=== PATIENT | female | born 1935 | race Caucasian/White ===

== ENCOUNTER 2016-09-08 17:20 | Inpatient (IN) | payer MEDICARE ==
[2016-09-08 18:17] LABS: BASO % 0.3 % (0.2-1.0); HEMATOCRIT 46.3 % (37.0-47.0); HEMOGLOBIN 14.4 gm/l (12.0-16.0); IMM NEUT% 0.3 % (0-1); LYMPH # 0.9 (1.0-4.8); LYMPH % 25.6 % (15-45); MEAN CELL VOLUME 95.9 fl (81.0-99.0); MEAN CORPUSCULAR HEMOGLOBIN 29.8 pg (27.0-31.0); MEAN CORPUSCULAR HGB CONC 31.1 g/dl (33.0-37.0); MEAN PLATELET VOLUME 10.5 fl (7.4-10.4); MONO # 0.6 (0.0-0.8); MONO % 17.5 % (4-12); NEUT % 56.3 % (43-75); PLATELET COUNT 192 K/mm3 (130-400); RED CELL DISTRIBUTION WIDTH 14.9 % (11.5-14.5)
[2016-09-08 18:33] LABS: ALB/GLOB RATIO 1.2 (>1.0); ALBUMIN 3.7 gm/dL (3.5-5.7); CALCIUM 8.7 mg/dL (8.6-10.3)
[2016-09-08 18:37] LABS: TROPONIN I < 0.01 ng/ml (0.0-0.06)
[2016-09-08 18:41] LABS: CKMB ISOENZYME 1.4 ng/ml (0.6-6.3)
[2016-09-08] MEDS ORDERED: Oseltamivir Phosphate 75 MG CAP ONE (19:14)
[2016-09-08] MEDS ORDERED: CEFTRIAXONE 1 GRAM DUPLEX 50 ML IV ONE (19:30)
[2016-09-08 19:53] LABS: URINE BILIRUBIN NEGATIVE (NEGATIVE); URINE BLOOD TRACE (NEGATIVE); URINE GLUCOSE (UA) NEGATIVE (NEGATIVE); URINE LEUKOCYTE ESTERASE NEGATIVE (NEGATIVE); URINE NITRITE NEGATIVE (NEGATIVE); URINE PROTEIN NEGATIVE (NEGATIVE); URINE UROBILINOGEN NORMAL (0-1 mg/dl)
[2016-09-08] MEDS ORDERED: AZITHROMYCIN 500 MG VIAL ONE (19:59)
[2016-09-08] MEDS ORDERED: SODIUM CHLORIDE 0.9% 250 ML IV ONE (20:00)
[2016-09-08 20:02] LABS: URINE APPEARANCE HAZY; URINE COLOR YELLOW
[2016-09-08 20:03] LABS: URINE BACTERIA 2+; URINE EPITHELIAL CELLS 0-2 /hpf; URINE RBC 0-2 /hpf; URINE WBC 0-2 /hpf
[2016-09-08] MEDS ORDERED: MENTHOL/CETYLPYRD 1 EACH LOZENGE PO PRN (20:44)
[2016-09-08] MEDS ORDERED: MAGNESIUM HYDROXIDE 30 ML UDCUP PO PRN (20:44)
[2016-09-08] MEDS ORDERED: BLISTEX LIPSTICK 1 EACH TP PRN (20:44)
[2016-09-08] MEDS ORDERED: BISACODYL 5 MG TABLET.EC PO PRN (20:44)
[2016-09-08] MEDS ORDERED: BISACODYL 10 MG SUP PR PRN (20:44)
[2016-09-08] MEDS ORDERED: AMMONIUM LACTATE 12% TP PRN (20:53)
[2016-09-08] MEDS ORDERED: NITROGLYCERIN 0.4 MG/TAB.SUBL BOT SL PRN (20:53)
[2016-09-08] MEDS ORDERED: SODIUM CHLORIDE 0.9% 1,000 ML IV SCH (21:45)
[2016-09-08] MEDS: SODIUM CHLORIDE 0.9% 1,000 ML IV SCH ×2 (21:52→22:57)
[2016-09-08 21:53] VITALS: BMI 36.8
[2016-09-08] MEDS: DOCUSATE SODIUM 100 MG CAPSULE PO SCH (22:22)
[2016-09-08] MEDS: ATORVASTATIN CALCIUM 10 MG TABLET PO SCH (22:22)
[2016-09-08] MEDS: AMITRIPTYLINE HCL 25 MG TABLET PO SCH (22:22)
[2016-09-08] MEDS: Potassium Chloride ORAL SOLN 20 MEQ/15 ML UDCUP PO SCH (22:23)
[2016-09-08] MEDS: ACETAMINOPHEN 325 MG TABLET PO PRN (22:23)
[2016-09-08] MEDS: OSELTAMIVIR PHOSPHATE 30 MG/5 ML SYRINGE PO SCH (22:57)
[2016-09-08] MEDS: ENOXAPARIN SODIUM 40 MG/0.4 ML SYRINGE SUB-Q SCH (23:51)
[2016-09-08] MEDS: BUMETANIDE 0.25 MG/ML 4ML VIAL IV SCH (23:57)
[2016-09-09] MEDS: HYDROCODONE/ACETAMINOPHEN 5/325MG TABLET PO PRN ×3 (00:28→19:28)
--- NOTE | 2016-09-09 05:38 | RAD ---
History: Dyspnea. Comparison: 02/15/2016. Technique: 2 views Findings: 2 views of the chest were performed demonstrating postsurgical changes with plate and screw fixation of the lower cervical spine. The examination is of low inspiratory volume. The heart size appears to be stable for technique. Bibasilar atelectasis or scarring is present. There is no effusion or pneumothorax is seen. The hilar and mediastinal structures are stable. Impression: 1. A lower respiratory volume with linear bibasilar atelectasis or scarring. 2. Prior plate and screw fixation of the lower cervical spine.
[2016-09-09 06:22] LABS: BASO % 0.2 % (0.2-1.0); EOS % 0.2 % (0.9-2.9); HEMATOCRIT 41.8 % (37.0-47.0); LYMPH # 1.3 (1.0-4.8); LYMPH % 31.7 % (15-45); MEAN CELL VOLUME 97.4 fl (81.0-99.0); MEAN CORPUSCULAR HEMOGLOBIN 30.3 pg (27.0-31.0); MEAN CORPUSCULAR HGB CONC 31.1 g/dl (33.0-37.0); MEAN PLATELET VOLUME 10.5 fl (7.4-10.4); MONO # 0.7 (0.0-0.8); NEUT % 49.9 % (43-75); PLATELET COUNT 150 K/mm3 (130-400); RED CELL DISTRIBUTION WIDTH 15.1 % (11.5-14.5)
--- NOTE | 2016-09-09 06:25 | HP ---
AUNG ROBERT [id number] DATE OF ADMISSION: September 08, 2016 CHIEF COMPLAINT: Dyspnea. HISTORY OF PRESENT ILLNESS: The patient is a 81-year-old female with a history of chronic obstructive pulmonary disease presents regarding dyspnea. She thought maybe she was getting a cold last when she spoke to her daughter, but more recently her facility sent her to the emergency room today because of dyspnea and some chest pain. She denies fevers, denies vomiting, denies diarrhea, but she reports feeling like hell. She notes her legs hurt some. RN has noted some skin irritation in the perineal and coccygeal areas as well. Patient is noted to have a positive influenza test today. PAST MEDICAL HISTORY: Remarkable for: 1. Dementia. 2. She has had previous strokes with right-sided weakness persisting. She had a recurrence in February,, and was admitted here. She is able to stand and take a few steps but does not walk farther than this. 3. She has coronary artery disease and has chronic angina. 4. She has dyslipidemia. 5. Remote history of breast cancer. 6. History of detached retina in the left eye. 7. History of a left radial fracture. PAST SURGICAL HISTORY: Includes: 1. Cervical spine surgery. 2. Back surgery. 3. Right total hip arthroplasty. 4. Bilateral carpal tunnel surgery. 5. Appendectomy. 6. Cholecystectomy. 7. Hysterectomy with oophorectomy. 8. Left lumpectomy. 9. Retinal detachment surgery. 10. Bilateral cataract replacements. ALLERGIES: She reports EGGS make her vomit, and she does not get her flu shots because of this. IMMUNIZATIONS: She has had her pneumonia shot but does not know when this was. MEDICATIONS: Taken from her Medication Administration Record at [facility]: 1. Acetaminophen 650 mg orally every six hours as needed. 2. Albuterol two puffs inhaled every four hours as needed. 3. Alendronate 70 mg orally weekly. 4. Amitriptyline 25 mg at bedtime. 5. AmLactin topically three times daily as needed. 6. Aspirin 325 mg daily. 7. Atorvastatin 10 mg orally at bedtime. 8. Bumetanide 2 mg orally twice daily. 9. Diclofenac topically four times daily as needed. 10. Lasix 40 mg orally daily. 11. Ibuprofen 800 orally every eight hours as needed. 12. Combivent Respimat one puff inhaled four times daily. 13. Imdur 60 mg orally in the morning. 14. Metoprolol tartrate 25 mg orally twice daily. 15. Nitroglycerin 0.4 mg sublingually every five minutes as needed. 16. Nystatin topical powder twice daily as needed. 17. Potassium chloride 20 mEq orally twice daily. 18. Detrol LA 2 mg orally in the morning. 19. Vitamin D3 2000 units orally daily. SOCIAL HISTORY: She lives at [facility]. She is . She quit smoking in 2007. She has three kids. They live in the area. 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 FAMILY HISTORY: Father in his 70s. Mom in her 80s. She has three biologic kids but has a number of other kids that she has grown close to over the years. REVIEW OF SYSTEMS: Eyes are okay. Ears are okay. Nose is okay except for being snotty. Mouth is okay, dry cough is noted, nonproductive and hacky. No heart complaints. No stomach complaints, no vomiting, no diarrhea, occasional constipation. No urinary complaints. She has noted leg swelling over the last year. Skin has had some irritation in the groin. Breasts, no complaints. Did have a history of stroke previously. Mood is okay. Memory is fair. Review of [facility] form indicates that they would accept hospitalization and even CPAP if necessary. They did not with to have intubation. PHYSICAL EXAM: GENERAL: Non-toxic but dyspneic female. VITAL SIGNS: Temperature 98.8, respirations 32 to 24 after respiratory treatments. Blood pressure 106/56, pulse 57, 98% saturation on 2 liters but had been 83% when she first presented. HEAD: Head is normocephalic, atraumatic. EYES: Arcus senilis noted. Pupils are small. EARS: Cerumen noted but otherwise normal. NOSE: Is normal without significant discharge noted at this time. MOUTH: Has dentures, slightly dry tongue noted. NECK: Is supple, no jugular venous distension. LUNGS: Decreased air movement, some wheezes bilaterally throughout anterior and posteriorly, right and left. HEART: Regular rate and rhythm but difficult to hear above the wheezing. ABDOMEN: Soft, nontender, nondistended. Bowel sounds are normal. Right upper quadrant scar is noted. GENITOURINARY: Inguinal creases with erythema consistent with a yeast dermatitis with a fairly notable irritation. EXTREMITIES: Legs with 2 to 3+ edema which is only partially pitting. Feet with flaking and onychomycosis noted but perfusion appears to be good. NEUROLOGIC: Cranial nerves are intact. Speech is clear and fluent. She is oriented times two. LABORATORY: White count 3.6, hemoglobin 14.4, platelets 192, lactate 0.9. Sodium is 137, potassium 3.9, chloride 96, CO2 33, BUN 26, creatinine 1.1, glucose 93, calcium 8.7, GFR is estimated at 48. Liver function tests are normal. Troponin less than 0.01. BNP is 21. CK-MB is 1.4. Influenza A is positive. IMAGING: Chest x-ray, poor inspiration, perihilar changes, previous neck surgery, atherosclerosis is noted on preliminary review. ELECTROCARDIOGRAM: Normal sinus rhythm 81 beats per minute, low voltage noted. ASSESSMENT AND PLAN: 1. Acute influenza A with respiratory failure and hypoxia. Anticipate use of Tamiflu, nebulizers and oxygen replacement. 2. Emergency room physician concerned for infiltrate. Patient was started on Rocephin and azithromycin. Patient does meet sepsis criteria. We will be continuing on the antibiotics and also adding IV fluid bolus but cautiously considering her advanced age with 2 liters at this time and will monitor blood pressure. 3. Chronic obstructive pulmonary disease. Continue nebulizers. Hold off on steroids for right now. 4. Dementia. Not otherwise addressed. 5. History of stroke. Continue on aspirin and blood pressure control. 6. History of coronary artery disease. Continue on aspirin and her regular medications. 7. History of osteoporosis. We will be holding the alendronate at this time. She received it just yesterday. 8. DO NOT RESUSCITATE status. Patient and daughter indicate they would accept CPAP but not intubation. 9. Venous thrombosis prophylaxis. Anticipate use of enoxaparin. 10. Patient is admitted as inpatient here and is estimated to likely be here between 2 and 4 days. cc: Carlitos Bledsoe D.O.
[2016-09-09 06:50] LABS: CALCIUM 7.7 mg/dL (8.6-10.3)
[2016-09-09] MEDS: ALBUTEROL/IPRATROPIUM 2.5/0.5 MG 3 ML/EACH DOSE NEB SCH ×4 (07:41→19:37)
--- NOTE | 2016-09-09 08:50 | PDOC43 ---
- Subjective Chief Complaint: Influenza RN noted very poor activity tolerance, request a Finch due to this plus inguinal skin breakdown, however, so far has been unable to place (even with dilaudid to help relax pt), despite bladder scan 600+. Respiratory wheezing, not monique changed after neb tx. - Objective Vital Signs Temperature 100.0 F 09/09/16 07:09 Pulse Rate 83 09/09/16 07:42 Respiratory Rate 22 09/09/16 07:42 Blood Pressure 138/83 09/09/16 07:09 O2 Saturation by Pulse Oximetry 100 09/09/16 07:42 Oxygen Delivery Method Nasal Cannula Oxygen Flow Rate 3 Vital Signs Last 12 Hours Temp Pulse Resp BP Pulse Ox 09/09/16 07:42 83 22 100 09/09/16 07:09 100.0 F 101 32 138/83 93 09/09/16 03:14 22 09/09/16 03:06 97.8 F 95 24 119/62 91 09/09/16 00:00 97.7 F 64 24 111/57 91 09/08/16 22:44 92 09/08/16 20:50 24 98 09/08/16 20:44 99.3 F 84 24 97/50 84 Intake and Output 09/07/16 09/08/16 09/09/16 23:59 23:59 23:59 Intake Total 3376 Output Total 900 Balance 2476 General: Alert, Cooperative, Mild Distress Lungs: Other (wheezing throughout.) Cardiovascular: Regular Rate and Rhythm Abdomen: Soft, Normal Bowel Sounds, Non-Distended Genitourinary: Other (erythema and erosions noted along inguinal creases bilat. Introitus with erythema, habitus obscures urethral meatus.) Extremities: Edema, No Tenderness Skin: Normal Color Neurological: Normal Speech Psych/Mental Status: Normal Affect Laboratory 09/09/16 05:30 09/09/16 05:30 09/09/16 05:30 MCHC 31.1 L RDW 15.1 H Calcium 7.7 L Current Medications: Current meds reviewed in EMR. Active Medications Acetaminophen (Tylenol) 650 mg PO Q6H PRN PRN Reason: Pain (Mild) Last Admin: 09/08/16 22:23 Dose: 650 mg Acetaminophen/Hydrocodone Bitart ([place] 5/325) 1 tab PO Q4H PRN PRN Reason: Pain Last Admin: 09/09/16 00:28 Dose: 1 tab Albuterol Sulfate (Ventolin Inhalation Solution (Dose)) 2.5 mg NEB Q2H PRN PRN Reason: Wheezing Albuterol/Ipratropium (Duoneb) 3 ml NEB 08,12,16,20 [facility] Last Admin: 09/09/16 07:41 Dose: 3 ml Amitriptyline HCl (Elavil) 25 mg PO BEDTIME [facility] Last Admin: 09/08/16 22:22 Dose: 25 mg Aspirin (Ecotrin) 325 mg PO DAILY [facility] Atorvastatin Calcium (Lipitor) 10 mg PO BEDTIME [facility] Last Admin: 09/08/16 22:22 Dose: 10 mg Benzocaine/Menthol (Cepacol) 1 each PO PRN PRN PRN Reason: Sore Throat Bisacodyl (Dulcolax) 10 mg CO DAILY PRN PRN Reason: Constipation Bisacodyl (Dulcolax) 5 mg PO DAILY PRN PRN Reason: Constipation Bumetanide (Bumex) 2 mg IV X1 [facility] Last Admin: 09/08/16 23:57 Dose: Not Given Cholecalciferol (Vitamin D3) 2,000 units PO 0800 [facility] Clotrimazole (Lotrimin) 1 applic TP BID [facility] Docusate Sodium (Colace) 100 mg PO BID [facility] Last Admin: 09/08/16 22:22 Dose: 100 mg Enoxaparin Sodium (Lovenox) 40 mg SUB-Q Q24H [facility] Last Admin: 09/08/16 23:51 Dose: 40 mg Furosemide (Lasix) 80 mg PO [id number] [facility] Azithromycin 500 mg/ Sodium (Chloride) 250 mls @ 250 mls/hr IV Q24H [facility] Ceftriaxone Sodium/Dextrose (Rocephin 1 Gram Premix) 50 mls @ 200 mls/hr IV Q24H [facility] Sodium Chloride (Sodium Chloride 0.9%) 100 mls @ 25 mls/hr IV PRN PRN PRN Reason: Flush Isosorbide Mononitrate (Imdur) 60 mg PO QAM [facility] Magnesium Hydroxide (Milk Of Magnesia) 30 ml PO DAILY PRN PRN Reason: Constipation Metoprolol Tartrate (Lopressor) 25 mg PO 0800,1600 [facility] Miscellaneous (Non Formulary Drug) 1 each TP QID PRN PRN Reason: Pain (Moderate) Nitroglycerin (Nitrostat) 0.4 mg SL Q5M PRN PRN Reason: Chest Pain Oseltamivir Phosphate (Tamiflu) 30 mg PO BID [facility] Last Admin: 09/08/16 22:57 Dose: 30 mg Petrolatum/Paraffin/Mineral Oil (Blistex) 1 each TP PRN PRN PRN Reason: Dry and/or chapped lips Polyethylene Glycol/Electrolytes (Miralax) 17 g PO DAILY [facility] Potassium Chloride (Potassium Chloride Oral Soln) 20 meq PO BID [facility] Last Admin: 09/08/16 22:23 Dose: 20 meq Sodium Chloride (Normal Saline 10ml Flush) 10 - 50 ml IV PRN PRN PRN Reason: IV Flush Sodium Chloride (Normal Saline 10ml Flush) 10 ml IV Q8HR [facility] Last Admin: 09/09/16 01:08 Dose: Not Given - Problems: Assessment/Plan (1) Influenza A Status: Acute Assessment/Plan: With acute respiratory failure, marked wheezing, on supplemental O2. On Tamiflu started 09/08/16; Pt does not get flu shot due to egg allergy. Meeting criteria for sepsis, given IVF; monitoring for fluid overload. (2) Dementia Qualifiers: Dementia type: Alzheimer's disease Alzheimer's disease onset: unspecified onset Dementia behavioral disturbance: without behavioral disturbance Qualifier Code: (G30.9) Alzheimer's disease, unspecified Status: Chronic Assessment/Plan: In observed room, but is cooperative. (3) CAD (coronary artery disease) Status: Chronic Assessment/Plan: normal troponin, normal BNP on admit. (4) HTN (hypertension) Qualifiers: Hypertension type: essential hypertension Qualifier Code: (I10) Essential (primary) hypertension Status: Chronic Assessment/Plan: Initially low BP on admit, now improved. (5) Ann infection of genital region Status: Acute Assessment/Plan: Making access for Finch difficult. Clotrimazole, zinc oxide ordered. (6) Urinary retention Status: Acute Assessment/Plan: also affected by IVF given for sepsis. Attempting Finch placement. VTE Prophylaxis: Enoxaparin Disposition: Hope to return to previous setting once respiratory status improves.
[2016-09-09] MEDS: ISOSORBIDE MONONITRATE 60 MG TAB.SR PO SCH (09:37)
[2016-09-09] MEDS: ASPIRIN (ENTERIC COATED) 325 MG TABLET.EC PO SCH (09:37)
[2016-09-09] MEDS: Potassium Chloride ORAL SOLN 20 MEQ/15 ML UDCUP PO SCH ×2 (09:37→21:28)
[2016-09-09] MEDS: DOCUSATE SODIUM 100 MG CAPSULE PO SCH ×2 (09:37→21:30)
[2016-09-09] MEDS: VITAMIN D3 1,000 UNITS CAP.LIQ PO SCH (09:37)
[2016-09-09] MEDS: METOPROLOL TARTRATE 25 MG TABLET PO SCH ×2 (09:38→17:02)
[2016-09-09] MEDS: POLYETHYLENE GLYCOL 3350 17 G POWD.SUSP PO SCH (09:38)
[2016-09-09] MEDS: CLOTRIMAZOLE 1% 15 APPLIC/15 G CREAM TP SCH ×2 (09:38→21:30)
[2016-09-09] MEDS: FUROSEMIDE 80 MG TABLET PO SCH ×2 (09:38→17:02)
[2016-09-09] MEDS: DICLOFENAC SODIUM 1% TP PRN ×2 (09:39→21:39)
[2016-09-09] MEDS ORDERED: HYDROMORPHONE HCL 0.5 MG/0.5 ML SYRINGE ONE (09:49)
[2016-09-09] MEDS ORDERED: ZINC OXIDE OINTMENT 30 APPLIC/30 G TUBE TP PRN (09:52)
[2016-09-09] MEDS: OSELTAMIVIR PHOSPHATE 30 MG/5 ML SYRINGE PO SCH ×2 (09:52→21:28)
[2016-09-09] MEDS: HYDROMORPHONE HCL 0.5 MG/0.5 ML SYRINGE IV ONE ×2 (09:53→10:09)
[2016-09-09] MEDS ORDERED: LIDOCAINE 2% UROJECT 10 ML ONE (11:29)
[2016-09-09] MEDS: CEFTRIAXONE 1 GRAM DUPLEX 50 ML IV SCH (19:28)
[2016-09-09] MEDS: SODIUM CHLORIDE 0.9% 100 ML IV PRN (19:48)
[2016-09-09] MEDS: AZITHROMYCIN 500 MG in SODIUM CHLORIDE 0.9% 250 ML IV SCH (21:23)
[2016-09-09] MEDS: AMITRIPTYLINE HCL 25 MG TABLET PO SCH (21:29)
[2016-09-09] MEDS: ATORVASTATIN CALCIUM 10 MG TABLET PO SCH (21:29)
[2016-09-09] MEDS: ENOXAPARIN SODIUM 40 MG/0.4 ML SYRINGE SUB-Q SCH (22:38)
[2016-09-10] MEDS: ALBUTEROL NEB 2.5 MG/3 ML VIAL.NEB NEB PRN (02:56)
[2016-09-10] MEDS: HYDROCODONE/ACETAMINOPHEN 5/325MG TABLET PO PRN ×2 (03:20→12:04)
[2016-09-10] MEDS: BUMETANIDE 0.25 MG/ML 4ML VIAL IV SCH (03:55)
[2016-09-10 07:34] LABS: ABSOLUTE NEUTROPHIL COUNT 2.2 K/mm3 (1.8-7.7); BASO % 0.2 % (0.2-1.0); EOS % 0.2 % (0.9-2.9); HEMATOCRIT 42.6 % (37.0-47.0); IMM NEUT% 0.2 % (0-1); LYMPH # 2.2 (1.0-4.8); LYMPH % 41.2 % (15-45); MEAN CELL VOLUME 98.4 fl (81.0-99.0); MEAN CORPUSCULAR HGB CONC 30.5 g/dl (33.0-37.0); MEAN PLATELET VOLUME 10.2 fl (7.4-10.4); MONO # 0.8 (0.0-0.8); MONO % 15.3 % (4-12); NEUT % 42.9 % (43-75); PLATELET COUNT 144 K/mm3 (130-400); RED CELL DISTRIBUTION WIDTH 14.9 % (11.5-14.5)
[2016-09-10 07:47] LABS: ALB/GLOB RATIO 0.9 (>1.0); ALBUMIN 3.1 gm/dL (3.5-5.7); CALCIUM 9.7 mg/dL (8.6-10.3)
[2016-09-10] MEDS: ALBUTEROL/IPRATROPIUM 2.5/0.5 MG 3 ML/EACH DOSE NEB SCH ×4 (07:50→20:55)
[2016-09-10] MEDS: POLYETHYLENE GLYCOL 3350 17 G POWD.SUSP PO SCH (09:39)
[2016-09-10] MEDS: Potassium Chloride ORAL SOLN 20 MEQ/15 ML UDCUP PO SCH ×2 (09:40→20:11)
[2016-09-10] MEDS: OSELTAMIVIR PHOSPHATE 30 MG/5 ML SYRINGE PO SCH ×2 (09:41→20:05)
[2016-09-10] MEDS: METOPROLOL TARTRATE 25 MG TABLET PO SCH ×2 (09:42→16:16)
[2016-09-10] MEDS: ASPIRIN (ENTERIC COATED) 325 MG TABLET.EC PO SCH (09:42)
[2016-09-10] MEDS: ISOSORBIDE MONONITRATE 60 MG TAB.SR PO SCH (09:42)
[2016-09-10] MEDS: FUROSEMIDE 80 MG TABLET PO SCH ×2 (09:42→16:16)
[2016-09-10] MEDS: DOCUSATE SODIUM 100 MG CAPSULE PO SCH ×2 (09:42→20:11)
[2016-09-10] MEDS: VITAMIN D3 1,000 UNITS CAP.LIQ PO SCH (09:43)
[2016-09-10] MEDS: CLOTRIMAZOLE 1% 15 APPLIC/15 G CREAM TP SCH ×2 (09:47→22:00)
[2016-09-10] MEDS ORDERED: PREDNISONE 20 MG TABLET PO SCH (10:45)
[2016-09-10] MEDS ORDERED: DICLOFENAC SODIUM 1% TP SCH (11:22)
[2016-09-10] MEDS: METHYLPRED SOD SUCCINATE 125 MG VIAL IV SCH ×3 (13:52→23:24)
--- NOTE | 2016-09-10 16:39 | PDOC43 ---
- Subjective Chief Complaint: Influenza Subjective: Denies Chest Pain - Objective Vital Signs Temperature 99.0 F 09/10/16 16:00 Pulse Rate 84 09/10/16 16:23 Respiratory Rate 18 09/10/16 16:23 Blood Pressure 85/52 09/10/16 16:00 O2 Saturation by Pulse Oximetry 92 09/10/16 16:23 Oxygen Delivery Method Nasal Cannula Oxygen Flow Rate 4 Intake and Output 09/09/16 09/10/16 09/11/16 06:59 06:59 06:59 Intake Total 3376 1214 Output Total 900 1999 Balance 4486 -423 General: Alert, Cooperative, Mild Distress HEENT: Mucous membr. moist/pink Lungs: Diminished at Bases (with scattered wheezing) Cardiovascular: Regular Rate and Rhythm Abdomen: Soft, Normal Bowel Sounds, Non-Distended, No Tenderness Extremities: No Edema Skin: Warm, Dry, Intact Laboratory 09/10/16 07:20 09/10/16 07:20 09/10/16 07:20 MCHC 30.5 L RDW 14.9 H Anion Gap 6 L Estimated GFR 81 H Albumin 3.1 L Albumin/Globulin Ratio 0.9 L Current Medications: Current meds reviewed in EMR. - Problems: Assessment/Plan (1) Influenza A Status: Acute Assessment/Plan: With acute respiratory failure, marked wheezing, on supplemental O2. On Tamiflu started 09/08/16; Pt does not get flu shot due to egg allergy. Meeting criteria for sepsis, given IVF; monitoring for fluid overload. (2) Ann infection of genital region Status: Acute Assessment/Plan: Making access for Finch difficult. Clotrimazole, zinc oxide ordered. (3) Urinary retention Status: Acute Assessment/Plan: Finch placement on 09/09. (4) Dementia Qualifiers: Dementia type: Alzheimer's disease Alzheimer's disease onset: unspecified onset Dementia behavioral disturbance: without behavioral disturbance Qualifier Code: (G30.9) Alzheimer's disease, unspecified Status: Chronic Assessment/Plan: In observed room, but is cooperative. (5) CAD (coronary artery disease) Qualifiers: Coronary Disease-Associated Artery/Lesion type: [place] artery [place] vs. transplanted heart: [place] heart Associated angina: without angina Qualifier Code: (I25.10) Atherosclerotic heart disease of [place] coronary artery without angina pectoris Status: Chronic Assessment/Plan: normal troponin, normal BNP on admit. (6) HTN (hypertension) Qualifiers: Hypertension type: essential hypertension Qualifier Code: (I10) Essential (primary) hypertension Status: Chronic Assessment/Plan: Initially low BP on admit, now low again-stop lasix, hold metoprolol prn. (7) Hyperlipidemia Qualifiers: Hyperlipidemia type: unspecified Qualifier Code: (E78.5) Hyperlipidemia , unspecified Status: Chronic Assessment/Plan: Cont. Lipitor (8) COPD (chronic obstructive pulmonary disease) with acute bronchitis Status: Acute Assessment/Plan: With acute hypoxic resp failure Starting Solu-Medrol / VTE Prophylaxis: Enoxaparin Disposition: Hope to return to previous setting once respiratory status improves.
[2016-09-10] MEDS ORDERED: PUMP TUBING ONE (19:37)
[2016-09-10] MEDS: SODIUM CHLORIDE 0.9% 100 ML IV PRN (19:55)
[2016-09-10] MEDS: CEFTRIAXONE 1 GRAM DUPLEX 50 ML IV SCH (20:00)
[2016-09-10] MEDS: AMITRIPTYLINE HCL 25 MG TABLET PO SCH (20:13)
[2016-09-10] MEDS: ATORVASTATIN CALCIUM 10 MG TABLET PO SCH (20:13)
[2016-09-10] MEDS: AZITHROMYCIN 500 MG in SODIUM CHLORIDE 0.9% 250 ML IV SCH (20:21)
[2016-09-10] MEDS: ENOXAPARIN SODIUM 40 MG/0.4 ML SYRINGE SUB-Q SCH (23:24)
[2016-09-11] MEDS: METHYLPRED SOD SUCCINATE 125 MG VIAL IV SCH ×3 (05:32→17:46)
[2016-09-11] MEDS: ALBUTEROL/IPRATROPIUM 2.5/0.5 MG 3 ML/EACH DOSE NEB SCH ×4 (08:10→20:00)
--- NOTE | 2016-09-11 08:22 | RAD ---
CHEST-AP BEDSIDE COMPARISON: Chest 2 views, 09/08/2016 HISTORY: Increased hypoxia. Admitted 2 days ago with acute influenza A with respiratory failure and hypoxia. FINDINGS: Views: Frontal chest. Lungs: Increasing opacity in the lateral right lung base with continued elevation of the right hemidiaphragm. Improved aeration in the left lung base. Heart and vessels: No change. Cardiomegaly with atherosclerosis of the aorta. Trachea and bronchi: Normal Mediastinum and abby: Normal Costophrenic sulci: New finding of mild blunting on the right. Chest wall and bones: No acute finding. Fusion hardware in the lower cervical spine. Upper abdomen: Cholecystectomy clips. IMPRESSION: Increasing infiltrate or subsegmental atelectasis in the right lung base.
[2016-09-11] MEDS: POLYETHYLENE GLYCOL 3350 17 G POWD.SUSP PO SCH (08:28)
[2016-09-11] MEDS: Potassium Chloride ORAL SOLN 20 MEQ/15 ML UDCUP PO SCH ×2 (08:28→20:54)
[2016-09-11] MEDS: OSELTAMIVIR PHOSPHATE 30 MG/5 ML SYRINGE PO SCH ×2 (08:29→20:53)
[2016-09-11] MEDS: METOPROLOL TARTRATE 25 MG TABLET PO SCH ×2 (08:31→16:30)
[2016-09-11] MEDS: ASPIRIN (ENTERIC COATED) 325 MG TABLET.EC PO SCH (08:31)
[2016-09-11] MEDS: VITAMIN D3 1,000 UNITS CAP.LIQ PO SCH (08:31)
[2016-09-11] MEDS: DOCUSATE SODIUM 100 MG CAPSULE PO SCH ×2 (08:31→20:53)
[2016-09-11] MEDS: ISOSORBIDE MONONITRATE 60 MG TAB.SR PO SCH (08:31)
[2016-09-11] MEDS: CLOTRIMAZOLE 1% 15 APPLIC/15 G CREAM TP SCH ×2 (08:32→21:16)
--- NOTE | 2016-09-11 10:54 | PDOC43 ---
- Subjective Chief Complaint: Influenza Subjective: Reports Shortness of Breath (persists), Denies Chest Pain, Denies Fever - Objective Vital Signs Temperature 98.0 F 09/11/16 07:00 Pulse Rate 88 09/11/16 08:10 Respiratory Rate 20 09/11/16 08:10 Blood Pressure 122/45 09/11/16 07:00 O2 Saturation by Pulse Oximetry 93 09/11/16 08:10 Oxygen Delivery Method Nasal Cannula Oxygen Flow Rate 6 Intake and Output 09/10/16 09/11/16 09/12/16 06:59 06:59 06:59 Intake Total 1214 1995 240 Output Total 1999 900 Balance -786 1096 240 General: Alert, Oriented x3, Cooperative, Moderate Distress HEENT: Mucous membr. moist/pink Lungs: Other (scattered ronchi) Cardiovascular: Regular Rate and Rhythm Abdomen: Soft, Normal Bowel Sounds, Non-Distended, No Tenderness Extremities: No Edema Skin: Warm, Dry, Intact Laboratory 09/10/16 07:20 09/10/16 07:20 Current Medications: Current meds reviewed in EMR. - Problems: Assessment/Plan (1) Influenza A Status: Acute Assessment/Plan: With acute respiratory failure, marked wheezing, on supplemental O2. On Tamiflu started 09/08/16; Pt does not get flu shot due to egg allergy. Meeting criteria for sepsis, given IVF; monitoring for fluid overload. (2) Ann infection of genital region Status: Acute Assessment/Plan: Clotrimazole, zinc oxide ordered. (3) Urinary retention Status: Acute Assessment/Plan: Finch placement on 09/09. (4) Dementia Qualifiers: Dementia type: Alzheimer's disease Alzheimer's disease onset: unspecified onset Dementia behavioral disturbance: without behavioral disturbance Qualifier Code: (G30.9) Alzheimer's disease, unspecified Status: Chronic Assessment/Plan: Mild In observed room, but is cooperative. (5) CAD (coronary artery disease) Qualifiers: Coronary Disease-Associated Artery/Lesion type: [place] artery [place] vs. transplanted heart: [place] heart Associated angina: without angina Qualifier Code: (I25.10) Atherosclerotic heart disease of [place] coronary artery without angina pectoris Status: Chronic Assessment/Plan: normal troponin, normal BNP on admit. (6) HTN (hypertension) Qualifiers: Hypertension type: essential hypertension Qualifier Code: (I10) Essential (primary) hypertension Status: Chronic Assessment/Plan: Initially low BP on admit, and on 09/10, improving-stopped lasix, hold metoprolol prn. (7) Hyperlipidemia Qualifiers: Hyperlipidemia type: unspecified Qualifier Code: (E78.5) Hyperlipidemia , unspecified Status: Chronic Assessment/Plan: Cont. Lipitor (8) COPD (chronic obstructive pulmonary disease) with acute bronchitis Status: Acute Assessment/Plan: With acute hypoxic resp failure Starting Solu-Medrol 09/10 (9) Bacterial pneumonia Status: Acute Assessment/Plan: Although not initially seen on CXR, suspect has been present since admission, involves RLL. 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
[2016-09-11] MEDS ORDERED: PUMP TUBING ONE (20:23)
[2016-09-11] MEDS: CEFTRIAXONE 1 GRAM DUPLEX 50 ML IV SCH (20:43)
[2016-09-11] MEDS: SODIUM CHLORIDE 0.9% 100 ML IV PRN (20:44)
[2016-09-11] MEDS: AMITRIPTYLINE HCL 25 MG TABLET PO SCH (20:53)
[2016-09-11] MEDS: ATORVASTATIN CALCIUM 10 MG TABLET PO SCH (20:53)
[2016-09-11] MEDS: AZITHROMYCIN 500 MG in SODIUM CHLORIDE 0.9% 250 ML IV SCH (21:14)
[2016-09-11] MEDS: ENOXAPARIN SODIUM 40 MG/0.4 ML SYRINGE SUB-Q SCH (22:28)
[2016-09-12] MEDS: METHYLPRED SOD SUCCINATE 125 MG VIAL IV SCH ×2 (00:56→05:31)
[2016-09-12] MEDS: HYDROCODONE/ACETAMINOPHEN 5/325MG TABLET PO PRN ×4 (00:56→23:37)
[2016-09-12] MEDS: CLOTRIMAZOLE 1% 15 APPLIC/15 G CREAM TP SCH ×2 (08:19→20:52)
[2016-09-12] MEDS: OSELTAMIVIR PHOSPHATE 30 MG/5 ML SYRINGE PO SCH ×2 (08:19→20:53)
[2016-09-12] MEDS: POLYETHYLENE GLYCOL 3350 17 G POWD.SUSP PO SCH (08:20)
[2016-09-12] MEDS: METOPROLOL TARTRATE 25 MG TABLET PO SCH ×2 (08:21→16:00)
[2016-09-12] MEDS: ASPIRIN (ENTERIC COATED) 325 MG TABLET.EC PO SCH (08:21)
[2016-09-12] MEDS: DOCUSATE SODIUM 100 MG CAPSULE PO SCH ×2 (08:21→20:52)
[2016-09-12] MEDS: Potassium Chloride ORAL SOLN 20 MEQ/15 ML UDCUP PO SCH ×2 (08:21→20:52)
[2016-09-12] MEDS: VITAMIN D3 1,000 UNITS CAP.LIQ PO SCH (08:21)
[2016-09-12] MEDS: ISOSORBIDE MONONITRATE 60 MG TAB.SR PO SCH (08:22)
[2016-09-12] MEDS: ALBUTEROL/IPRATROPIUM 2.5/0.5 MG 3 ML/EACH DOSE NEB SCH ×4 (08:31→19:14)
--- NOTE | 2016-09-12 11:21 | PDOC43 ---
- Subjective Chief Complaint: Influenza Subjective: Reports Tolerating Diet Well, Reports Shortness of Breath (persists with hypoxia), Reports Cough, Denies Chest Pain, Denies Fever - Objective Vital Signs Temperature 98.0 F 09/12/16 07:00 Pulse Rate 97 09/12/16 08:33 Respiratory Rate 22 09/12/16 08:33 Blood Pressure 140/56 09/12/16 07:00 O2 Saturation by Pulse Oximetry 93 09/12/16 08:33 Oxygen Delivery Method Nasal Cannula Oxygen Flow Rate 4 Intake and Output 09/11/16 09/12/16 09/13/16 06:59 06:59 06:59 Intake Total 1995 2363 Output Total 900 1050 Balance 1096 1313 General: Alert, Cooperative, Mild Distress HEENT: Mucous membr. moist/pink Lungs: Other (scattered wheezes and ronchi) Cardiovascular: Regular Rate and Rhythm Abdomen: Soft, Normal Bowel Sounds, Non-Distended, No Tenderness Extremities: No Edema Skin: Warm, Dry, Intact Laboratory 09/10/16 07:20 09/10/16 07:20 Current Medications: Current meds reviewed in EMR. - Problems: Assessment/Plan (1) Influenza A Status: Acute Assessment/Plan: With acute respiratory failure, marked wheezing, on supplemental O2. On Tamiflu started 09/08/16; Pt does not get flu shot due to egg allergy. Meeting criteria for sepsis, given IVF; monitoring for fluid overload. (2) Ann infection of genital region Status: Acute Assessment/Plan: Clotrimazole, zinc oxide ordered. Will also give single dose of Diflucan (3) Urinary retention Status: Acute Assessment/Plan: Possibly due to candidiasis Finch placement on 09/09. Trial catheter removal today (4) Dementia Qualifiers: Dementia type: Alzheimer's disease Alzheimer's disease onset: unspecified onset Dementia behavioral disturbance: without behavioral disturbance Qualifier Code: (G30.9) Alzheimer's disease, unspecified Status: Chronic Assessment/Plan: Mild In observed room, but is cooperative. (5) CAD (coronary artery disease) Qualifiers: Coronary Disease-Associated Artery/Lesion type: [place] artery [place] vs. transplanted heart: [place] heart Associated angina: without angina Qualifier Code: (I25.10) Atherosclerotic heart disease of [place] coronary artery without angina pectoris Status: Chronic Assessment/Plan: normal troponin, normal BNP on admit. (6) HTN (hypertension) Qualifiers: Hypertension type: essential hypertension Qualifier Code: (I10) Essential (primary) hypertension Status: Chronic Assessment/Plan: Initially low BP on admit, and on 09/10, increased today-resume Lasix (7) Hyperlipidemia Qualifiers: Hyperlipidemia type: unspecified Qualifier Code: (E78.5) Hyperlipidemia , unspecified Status: Chronic Assessment/Plan: Cont. Lipitor (8) COPD (chronic obstructive pulmonary disease) with acute bronchitis Status: Acute Assessment/Plan: With acute hypoxic resp failure Starting Solu-Medrol 09/10 transition to PO prednisone 09/12 (9) Bacterial pneumonia Status: Acute Assessment/Plan: Although not initially seen on CXR, suspect has been present since admission, involves RLL. 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
[2016-09-12] MEDS: PREDNISONE 20 MG TABLET PO SCH (11:56)
[2016-09-12] MEDS ORDERED: FLUCONAZOLE 150 MG TABLET PO ONE (12:00)
[2016-09-12 12:30] LABS: PH,URINE 6.5 (5.0-8.0); SPECIFIC GRAVITY 1.015 (1.001-1.030); URINE BILIRUBIN NEGATIVE (NEGATIVE); URINE BLOOD 4+ (NEGATIVE); URINE GLUCOSE (UA) NEGATIVE (NEGATIVE); URINE LEUKOCYTE ESTERASE TRACE (NEGATIVE); URINE NITRITE NEGATIVE (NEGATIVE); URINE PROTEIN 1+ (NEGATIVE); URINE UROBILINOGEN NORMAL (0-1 mg/dl)
[2016-09-12 12:31] LABS: URINE APPEARANCE HAZY; URINE COLOR YELLOW
[2016-09-12 12:35] LABS: URINE BACTERIA RARE; URINE EPITHELIAL CELLS 0-1 /hpf; URINE RBC 40-50 /hpf; URINE WBC RARE /hpf
[2016-09-12] MEDS ORDERED: IV START KIT ONE (17:27)
[2016-09-12] MEDS ORDERED: PUMP TUBING ONE (20:22)
[2016-09-12] MEDS: CEFTRIAXONE 1 GRAM DUPLEX 50 ML IV SCH (20:47)
[2016-09-12] MEDS: SODIUM CHLORIDE 0.9% 100 ML IV PRN (20:48)
[2016-09-12] MEDS: AMITRIPTYLINE HCL 25 MG TABLET PO SCH (20:52)
[2016-09-12] MEDS: ATORVASTATIN CALCIUM 10 MG TABLET PO SCH (20:52)
[2016-09-12] MEDS: AZITHROMYCIN 500 MG in SODIUM CHLORIDE 0.9% 250 ML IV SCH (21:38)
[2016-09-12] MEDS: ENOXAPARIN SODIUM 40 MG/0.4 ML SYRINGE SUB-Q SCH (23:29)
[2016-09-12] MEDS: ALBUTEROL NEB 2.5 MG/3 ML VIAL.NEB NEB PRN (23:42)
[2016-09-13] MEDS: ALBUTEROL NEB 2.5 MG/3 ML VIAL.NEB NEB PRN (04:49)
[2016-09-13] MEDS: HYDROCODONE/ACETAMINOPHEN 5/325MG TABLET PO PRN ×2 (06:27→12:11)
[2016-09-13 06:57] LABS: CALCIUM 10.1 mg/dL (8.6-10.3)
[2016-09-13] MEDS ORDERED: FUROSEMIDE 40 MG TABLET PO SCH (08:00)
[2016-09-13] MEDS: POLYETHYLENE GLYCOL 3350 17 G POWD.SUSP PO SCH (08:38)
[2016-09-13] MEDS: ASPIRIN (ENTERIC COATED) 325 MG TABLET.EC PO SCH (08:41)
[2016-09-13] MEDS: PREDNISONE 20 MG TABLET PO SCH (08:41)
[2016-09-13] MEDS: VITAMIN D3 1,000 UNITS CAP.LIQ PO SCH (08:41)
[2016-09-13] MEDS: METOPROLOL TARTRATE 25 MG TABLET PO SCH (08:41)
[2016-09-13] MEDS: ISOSORBIDE MONONITRATE 60 MG TAB.SR PO SCH (08:41)
[2016-09-13] MEDS: DOCUSATE SODIUM 100 MG CAPSULE PO SCH (08:41)
[2016-09-13] MEDS: Potassium Chloride ORAL SOLN 20 MEQ/15 ML UDCUP PO SCH (08:42)
[2016-09-13] MEDS: OSELTAMIVIR PHOSPHATE 30 MG/5 ML SYRINGE PO SCH (08:42)
[2016-09-13] MEDS: ACETAMINOPHEN 325 MG TABLET PO PRN (08:42)
[2016-09-13] MEDS: ALBUTEROL/IPRATROPIUM 2.5/0.5 MG 3 ML/EACH DOSE NEB SCH ×2 (08:53→12:24)
[2016-09-13] MEDS: CLOTRIMAZOLE 1% 15 APPLIC/15 G CREAM TP SCH (09:01)
[2016-09-13 12:09] VITALS: BP 110/68
--- NOTE | 2016-09-13 13:31 | DS ---
Ping Weiner [id number] DATE OF ADMISSION: September 08, 2016 DATE OF DISCHARGE: September 13, 2016 DISPOSITION: [facility]. DISCHARGE CONDITION: Fair. CODE STATUS: Do not resuscitate, do not intubate. DISCHARGE DIAGNOSES: 1. Acute influenza A. 2. Community acquired bacterial pneumonia, it involved the right lower lobe. 3. Chronic obstructive pulmonary disease exacerbation. 4. Acute respiratory failure with hypoxia. 5. Senile dementia. 6. Coronary artery disease, stable. 7. Chronic essential hypertension. 8. Acute kd infection of the perineum with acute urinary retention treated with a Finch catheter. 9. Chronic diastolic congestive heart failure. TO SUMMARIZE THE ADMISSION AND HOSPITAL COURSE: The patient is a 81-year-old female with medical problems as listed above who presented to [facility] emergency department with complaints of dyspnea and some chest pain. She was noted in the emergency department to have perineal inflammation consistent with yeast infection and had a positive influenza screen. Initial chest x-ray was read as negative. She did have mild hypoxia on presentation with oxygen saturations down to 83% on room air. She was referred to the hospitalist service for admission. There was initially some concern on the part of the emergency department physician for pneumonia and she was treated empirically with Rocephin and Zithromax along with Tamiflu and aggressive nebulizer treatments and despite aggressive treatment the patient's symptoms were very slow to improve. She had persistent hypoxemia requiring oxygen supplementation. A follow up chest x-ray on September 11 did show an infiltrate in the right lung base, but her fever resolved, last fever was up to 100.2 on September 10, 2016 and her white blood cell count remained stable. She was started on Solu-Medrol IV on September 10 transitioning over to oral prednisone on the 12 of September and was felt to be medically stable for intermediate care by the 13 of September. PHYSICAL EXAMINATION: VITALS: At discharge temperature of 98.0, pulse 81, blood pressure 110/68, respirations 22, oxygen saturation 92% on 3 liters by nasal cannula. Body mass index 38.3, weight is 95 kg. GENERAL: This is a obese elderly female in mild respiratory distress. HEENT: Unremarkable. LUNGS: Reveal some scattered rhonchi and extra wheezes. CARDIOVASCULAR: Reveals a regular rate and rhythm without a murmur. ABDOMEN: Soft, nontender, nondistended with positive bowel sounds. EXTREMITIES: Show no peripheral edema. LABORATORY STUDIES: Basic metabolic panel done on September 13 showed a sodium of 134, potassium 4.8, carbon dioxide 32, creatinine 0.7. Last CBC on September 10 showed a white count of 5.2, hemoglobin of 13.0, platelet count of 144,000. DISPOSITION: [facility]. Goal is return to [facility] living [facility]. She will discharge on oxygen at 3 liters by nasal cannula with a Finch catheter. She will get skin care, bowel care, podiatry care per [facility] protocol. She will get physical therapy and occupational therapy services evaluate and treat. Weightbearing as tolerated. ACTIVITY: As tolerated. DISCHARGE DIET: Regular diet, regular texture. DISCHARGE INSTRUCTION: To have the Finch catheter removed in 4 days. To have the oxygen weaned down to room air as long as saturations remain above 88%. DISCHARGE MEDICATIONS: 1. Lasix 40 mg daily at 8:00 a.m. 2. Vitamin D3 2000 units daily at 8:00 a.m. 3. Potassium chloride 20 mEq daily. 4. Nitroglycerin 0.4 mg sublingual every 5 minutes as needed for chest pain. 5. Imdur 60 mg by mouth every morning. 6. Combivent meter dose inhaler one puff four times daily. 7. Ibuprofen 800 mg every 8 hours as needed for pain. 8. Lipitor 10 mg at bedtime. 9. Enteric coated aspirin 325 mg daily. 10. Amitriptyline 25 mg at bedtime. 11. Fosamax 70 mg once a week. 12. Albuterol HFA inhaler two puffs every 4 hours as needed for wheezing. 13. Mycostatin topical powder apply topically twice daily. 14. Tylenol 650 mg every 6 hours as needed for pain or fever. 15. Amlactin lotion one application topically three times daily as needed. 16. Voltaren gel 5 gm topically up to four times daily as needed. 17. Detrol LA 2 mg daily at 0800. 18. Lopressor 25 mg at 8:00 a.m. and 1600. 19. Prednisone taper 40 mg daily for 2 days, 20 mg daily for 3 days and then stop. 20. Vicodin 1 by mouth every 4 hours as needed for severe pain. 21. Clotrimazole 1% cream applied to the perineum topically twice daily. 22. DuoNeb's 3 mL nebulized 4 times daily. 23. Albuterol nebs 2.5 mg nebulized every 2 hours as needed. FOLLOW UP: To be scheduled with Dr. Carlitos Bledsoe as needed. CODE STATUS: Do not resuscitate, do not intubate. ALLERGIES: INCLUDE EGG. JOB: [id number] CC: Dr. Carlitos Bledsoe
== END 2016-09-13 14:07 | DRG 871 ==
LOC: ED 17:20 → MS 19:43
PROVIDERS: ADMIT Family Medicine; ATTEND Family Medicine
DX: A41.89 Other specified sepsis (principal); J18.9 Pneumonia, unspecified organism; J96.01 Acute respiratory failure with hypoxia; J44.1 Chronic obstructive pulmonary disease with (acute) exacerbation; I50.32 Chronic diastolic (congestive) heart failure; B37.49 Other urogenital candidiasis; B97.89 Other viral agents as the cause of diseases classified elsewhere; J09.X2 Influenza due to identified novel influenza A virus with other respiratory manifestations; F03.90 Unspecified dementia, unspecified severity, without behavioral disturbance, psychotic disturbance, mood disturbance, and anxiety; I25.10 Atherosclerotic heart disease of native coronary artery without angina pectoris; E78.5 Hyperlipidemia, unspecified; Z87.01 Personal history of pneumonia (recurrent); R91.8 Other nonspecific abnormal finding of lung field; Z86.73 Personal history of transient ischemic attack (TIA), and cerebral infarction without residual deficits; Z66 Do not resuscitate; I11.0 Hypertensive heart disease with heart failure

== ENCOUNTER 2016-11-05 02:57 | Observation (INO) | payer MEDICARE ==
[2016-11-05 03:40] LABS: ABSOLUTE NEUTROPHIL COUNT 4.8 K/mm3 (1.8-7.7); BASO % 0.1 % (0.2-1.0); EOS # 0.2 (0.0-0.5); EOS % 2.3 % (0.9-2.9); HEMATOCRIT 40.8 % (37.0-47.0); HEMOGLOBIN 13.1 gm/l (12.0-16.0); IMM NEUT% 0.3 % (0-1); LYMPH # 1.7 (1.0-4.8); LYMPH % 23.2 % (15-45); MEAN CELL VOLUME 95.8 fl (81.0-99.0); MEAN CORPUSCULAR HEMOGLOBIN 30.8 pg (27.0-31.0); MEAN CORPUSCULAR HGB CONC 32.1 g/dl (33.0-37.0); MEAN PLATELET VOLUME 9.9 fl (7.4-10.4); MONO # 0.5 (0.0-0.8); MONO % 6.8 % (4-12); NEUT % 67.3 % (43-75); PLATELET COUNT 197 K/mm3 (130-400); RED CELL DISTRIBUTION WIDTH 13.3 % (11.5-14.5)
[2016-11-05 03:41] LABS: URINE BILIRUBIN NEGATIVE (NEGATIVE); URINE BLOOD TRACE (NEGATIVE); URINE GLUCOSE (UA) NEGATIVE (NEGATIVE); URINE LEUKOCYTE ESTERASE NEGATIVE (NEGATIVE); URINE NITRITE NEGATIVE (NEGATIVE); URINE PROTEIN NEGATIVE (NEGATIVE); URINE UROBILINOGEN NORMAL (0-1 mg/dl)
[2016-11-05 03:52] LABS: URINE APPEARANCE CLEAR; URINE COLOR AMBER
[2016-11-05 03:56] LABS: URINE BACTERIA 0
[2016-11-05 04:02] LABS: ALB/GLOB RATIO 1.5 (>1.0); ALBUMIN 3.8 gm/dL (3.5-5.7); CALCIUM 9.3 mg/dL (8.6-10.3)
[2016-11-05] MEDS ORDERED: ONDANSETRON 4 MG/2ML 2 ML VIAL ONE (04:16)
[2016-11-05] MEDS ORDERED: HYDROMORPHONE HCL 0.5 MG/0.5 ML SYRINGE ONE ×2 (04:16→04:33)
[2016-11-05] MEDS ORDERED: SODIUM CHLORIDE 0.9% 500 ML ONE (04:16)
[2016-11-05] MEDS ORDERED: ALBUTEROL/IPRATROPIUM 2.5/0.5 MG 3 ML/EACH DOSE ONE (04:32)
[2016-11-05] MEDS ORDERED: IOPAMIDOL 370 (76%) IV.SOLN 150 ML IV ONE (05:21)
[2016-11-05 06:21] VITALS: BMI 37.5
[2016-11-05] MEDS ORDERED: MENTHOL/CETYLPYRD 1 EACH LOZENGE PO PRN (06:52)
[2016-11-05] MEDS ORDERED: SODIUM CHLORIDE 0.9% 100 ML IV PRN (06:52)
[2016-11-05] MEDS ORDERED: BISACODYL 5 MG TABLET.EC PO PRN (06:52)
[2016-11-05] MEDS ORDERED: BISACODYL 10 MG SUP PR PRN (06:52)
[2016-11-05] MEDS ORDERED: MAGNESIUM HYDROXIDE 30 ML UDCUP PO PRN (06:52)
[2016-11-05] MEDS ORDERED: BLISTEX LIPSTICK 1 EACH TP PRN (06:52)
--- NOTE | 2016-11-05 07:05 | RAD ---
PELVIS COMPARISON: None HISTORY: 81-year-old female, unwitnessed fall at assisted living. Pelvis pain. FINDINGS: Views: AP pelvis. Bones: No fracture. Decreased mineralization. Joints: No abnormality identified at the right total hip uncemented arthroplasty. Normal symphysis pubis. Severe narrowing of the left hip. Normal sacroiliac joints. Lower lumbar spine: Severe L5-S1 disc narrowing. Fusion hardware. Soft tissues: Normal. IMPRESSION: 1. No fracture. 2. Severe osteoarthritis of the left hip. Radiographically normal appearance of the right total hip arthroplasty.
--- NOTE | 2016-11-05 07:07 | RAD ---
FEMUR RIGHT COMPARISON: None. HISTORY: I witnessed ground-level fall at assisted living center. Right hip and thigh pain. Views: Right femur AP and lateral FINDINGS: Bones: Decreased mineralization. No fracture. Joints: Satisfactory appearance of the right total hip uncemented arthroplasty. Normal right knee. Soft tissues: Normal. IMPRESSION: 1. No fracture. 2. Osteopenia. 3. Satisfactory appearance of the right total hip arthroplasty.
[2016-11-05] MEDS ORDERED: ALBUTEROL NEB 2.5 MG/3 ML VIAL.NEB NEB PRN (07:12)
[2016-11-05] MEDS ORDERED: ACETAMINOPHEN 325 MG TABLET PO PRN (07:12)
[2016-11-05] MEDS ORDERED: NITROGLYCERIN 0.4 MG/TAB.SUBL BOT SL PRN (07:12)
--- NOTE | 2016-11-05 07:16 | CT ---
HEAD W/O CON COMPARISON: CT angiogram of the head, 02/15/2016 HISTORY: Unwitnessed ground-level fall with head injury in a patient with prior history of cerebrovascular accidents. TECHNIQUE: Using a [employer] [address], images were obtained through the head. An automated dose reduction technique was used to minimize patient radiation dose. DOSE INFORMATION: CTDIvol (mGy): 51.70 DLP(mGycm): 964.80 FINDINGS: Mass: None Intracranial Hemorrhage: None Acute Infarction: No acute large vessel territory infarction. Cerebral hemispheres: No change. Mild atrophy. Extensive low-attenuation in the white matter. Basal ganglia: Normal Thalami: No change. 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 Brainstem: Normal Cerebellum: Normal Ventricles: Normal Basilar cisterns: Normal Corpus callosum: Normal Pituitary fossa: Normal Middle ears and mastoid air cells: Normal Orbits and sinuses: No acute finding. Bilateral scleral plaques and aphakia of the optic globes. The visualized portions of the paranasal sinuses are clear. Skull and scalp: No change. 2.4 x 1.1 cm sclerotic lesion in the left frontal bone and 1.2 x 0.8 cm sclerotic lesion in the right frontal bone, evidence of osteomas. Incidentally noted hyperostosis frontalis interna. Normal scalp. Dural sinuses and vessels: Normal dural sinuses. Atherosclerotic calcific plaquing of the internal carotid arteries. IMPRESSION: 1. Minor left frontal scalp soft tissue swelling. No depressed skull fracture. No intracranial hemorrhage. 2. 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 Extensive chronic small vessel ischemic change of the cerebral white matter. 3. Incidental findings include age-related changes in the orbits and sclerotic lesions in the frontal bones, evidence of osteomas. These do not represent metastasis. Preliminary report by [facility] radiologist Cheo Marquez MD 11/05/2016 at 04:01
[2016-11-05] MEDS: ENOXAPARIN SODIUM 40 MG/0.4 ML SYRINGE SUB-Q SCH (07:37)
[2016-11-05] MEDS: NYSTATIN TOPICAL POWDER 100 MU/G 5 APPLIC/15 G BOT TP SCH ×2 (08:24→22:01)
[2016-11-05] MEDS: FUROSEMIDE 80 MG TABLET PO SCH (08:25)
[2016-11-05] MEDS: ASPIRIN (ENTERIC COATED) 325 MG TABLET.EC PO SCH (08:25)
[2016-11-05] MEDS: DOCUSATE SODIUM 100 MG CAPSULE PO SCH ×2 (08:25→22:01)
[2016-11-05] MEDS: ISOSORBIDE MONONITRATE 60 MG TAB.SR PO SCH (08:25)
[2016-11-05] MEDS: CLOTRIMAZOLE 1% 15 APPLIC/15 G CREAM TP SCH ×2 (08:25→22:02)
[2016-11-05] MEDS: METOPROLOL TARTRATE 25 MG TABLET PO SCH ×2 (08:25→16:33)
[2016-11-05] MEDS: POTASSIUM CHLORIDE 20 MEQ TAB.PRT.SR PO SCH ×2 (08:25→22:01)
[2016-11-05] MEDS: ALBUTEROL/IPRATROPIUM 2.5/0.5 MG 3 ML/EACH DOSE NEB SCH ×4 (08:31→20:39)
[2016-11-05] MEDS: BUDESONIDE 0.5 MG/2 ML VIAL.NEB IH SCH ×2 (08:31→20:39)
--- NOTE | 2016-11-05 08:35 | HP ---
Ping Weiner [id number] DATE OF ADMISSION: 11/05/2016 CHIEF COMPLAINT: Fall and inability to ambulate. HISTORY OF PRESENT ILLNESS: The patient is a 81-year-old female who was reported to have fallen early a.m. last night. No reason for fall, but patient is now unable to ambulate and complains of hip pain. She was brought to the emergency room. She was complaining of back and hip pain there. She notes some generalized soreness and underwent CT of her head as well. She reports her knees and arms are otherwise okay, but does have a little bit of a headache. She is unable to give much additional history due to her history of dementia. PAST MEDICAL HISTORY: Remarkable for dementia, history of strokes with some right sided weakness, she is able to stand and take some steps according to previous history and physical, history of chronic angina, coronary artery disease, stable, dyslipidemia, remote history of breast cancer, history of detached retina on the left, history of left radial fracture, and she was hospitalized here at [place] September 08 for influenza A. PAST SURGICAL HISTORY: C-spine surgery, back surgery, right total hip arthroplasty, appendectomy, open cholecystectomy, abdominal hysterectomy, and bilateral oophorectomy, left lumpectomy, retinal detachment surgery, and cataract replacement. CODE STATUS: She is do not resuscitate status. ALLERGIES: SHE REPORTS EGGS MAKE HER VOMIT. MEDICATIONS: Her home medications: 1. Acetaminophen 650 mg by mouth every 6 hours as needed. 2. Albuterol 2.5 neb every 2 hours as needed. 3. Ventolin meter dose inhaler 2 puffs every 4 hours as needed. 4. DuoNeb 3 mL neb 4 times a day. 5. Alendronate 70 mg by mouth daily. 6. Ammonium lactate topical three times daily as needed. 7. Aspirin 325 mg by mouth daily. 8. Atorvastatin 10 mg at bedtime. 9. Pulmicort 1mg/2 mL neb twice daily. 10. Lotrimin topically twice daily. 11. Diclofenac 5 gm topically four times daily as needed. 12. Lasix 80 mg by mouth every morning. 13. Deloit 5/325 one by mouth every 4 hours as needed. 14. Ibuprofen 800 mg by mouth every 8 hours as needed. 15. Isosorbide mononitrate. 16. Imdur 60 mg by every morning. 17. Metoprolol tartrate 25 mg by mouth twice daily. 18. Nitroglycerin 0.4 mg sublingually every 5 minutes as needed. 19. Nystatin topically twice daily. 20. Potassium chloride 20 mEq by mouth twice daily. 21. Seroquel 25 mg in the morning, 50 mg by mouth in the evening. 22. Daliresp 500 mcg by mouth daily. 23. Tiotropium 1 puff inhaled daily. 24. Vitamin D3 2000 units by mouth every morning. SOCIAL HISTORY: She is at [facility]. She is . Has a history of smoking, but quit 2007. She has three kids. 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 She reports she enjoys [employer]. FAMILY HISTORY: Taken from previous history and physical shows father at 70 and mom in her 80's. She has three biological kids. REVIEW OF SYSTEMS: Eyes: Been blurry sometimes, she attributes this to fall. Ears are okay. nose is okay. She does have a red maximilian on her forehead and bridge of nose. Mouth is dry. Teeth are okay. neck is okay. Shoulders are sore bilaterally. Elbows and hands are okay. Chest: She notes soreness attributed to fall. No shortness of breath. Stomach is okay. No nausea, no vomiting. No diarrhea. No constipation. No urinary complaints. She does have a Finch in now. Hip hurts on the right greater than left. She notes her ankles and feet swell some. Skin has otherwise been okay. PHYSICAL EXAMINATION: GENERAL: Nontoxic female, alert, pleasant, appropriate, but with poor memory. VITAL SIGNS: Blood pressure 118/57, pulse 95, respirations 14, temperature 97.4, 92% saturation on room air although, after getting Dilaudid she did have some desaturations into the 80's. HEENT: Head: Abrasion on the left forehead and bridge of nose, but no fracture suggested. Head is otherwise, nontender, no blood evident. Eyes are grossly unremarkable. Pupils are small. Ears: Difficulty visualizing due to small canals and cerumen. Nose is otherwise, unremarkable, no discharge. Upper lip with a little bit of bleeding suggesting a small cut to the lip from her dentures. Upper denture is noted. Mucous membranes are moist. NECK: Nontender. No crepitance noted. LUNGS: Clear to auscultation bilaterally. HEART: Regular rate and rhythm. BREAST: Some redness noted on her breast, mild to moderate. ABDOMEN: Right upper quadrant scar from open cholecystectomy. Bowel sounds are normal. No rebound, no guarding, no bruits. Rash noted in the right inguinal crease. Finch is in. EXTREMITIES: Right hip is tender to palpation as well as log rolling and movement, but no crepitance noted although, leg has not vigorously moved. Knees with osteoarthritic changes, but otherwise nontender. Lower legs with 2+ pitting edema with some mild erythema bilaterally anteriorly. Feet without ulcer, but some onychomycosis noted. Hands normal. Perfusion appears to be appropriate. NEUROLOGIC: Cranial nerves are intact. Memory is fair to poor. Social skills well preserved. She is very pleasant and appropriate. LABORATORY: White count 7.1, hemoglobin 13.1, platelets 197. Sodium 138, potassium 3.8, chloride 100, CO2 30, BUN 16, creatinine 0.8, glucose 118, calcium is 9.3. LFT's are unremarkable. Albumin 3.8, globulin 2.5. Urinalysis specific gravity of 1.020, 3-5 red cells, 2-5 white cells, 2-4 epithelial cells. Ethanol level is negative. DIAGNOSTICS: CT of head, no acute changes, some extracranial swelling and old infarct seen, sclerotic lesions noted on the calvarium, which could represent metastatic disease. Right hip prosthesis is present, appears to be intact, pelvis without acute change. ASSESSMENT AND PLAN: 1. Fall with right hip pain at site of previous total hip arthroplasty. Physical therapy, occupational therapy, and ortho about recommendations if patient could have a loosened prosthesis or other changes. Will also be checking a CPK. 2. Placement. Will need consideration if unable to walk or stand. 3. Dementia, mild to moderate, but very pleasant. 4. Calvarial sclerotic lesion. On initial exam appears relatively unchanged from previous. Will consider for a CT of chest, abdomen, and pelvis, particularly with a prior history of breast cancer. 5. History of angina. We will check a troponin and BNP. 6. Remote history of breast cancer. We will be checking CT of chest, abdomen, and pelvis. 7. Recent hospitalization for influenza A, appears to be doing well. 8. Do not resuscitate status is ordered. 9. Venous thrombosis prophylaxis. Anticipate use of enoxaparin. 10. Chronic obstructive pulmonary disease. Will continue on nebulizers. She is noted to have some desaturations after Dilaudid. We will continue on oxygen supplementation and monitor. JOB: [id number] CC: Dr. Maximilian Bledsoe
--- NOTE | 2016-11-05 08:53 | CT ---
Exam: CT chest, abdomen and pelvis with contrast COMPARISON: CT head 11/05/2016 and 02/15/2016 INDICATION: History of breast cancer, calvarial sclerosis. Of note, the sclerotic lesions seen on the head CT are stable, and were deemed likely benign osteomas. TECHNIQUE: CT examination of the chest, abdomen and pelvis was obtained following the administration of 125 mL Isovue-370 intravenous contrast. FINDINGS: No additional sclerotic lesions are seen within the bones. Postsurgical changes are appreciated within the lower cervical spine and lower lumbar spine. Right hip arthroplasty is appreciated. Osteoarthritis is noted within the left hip. Paraseptal emphysema is appreciated. There is bibasilar atelectasis, right greater than left. There is no significant mediastinal, hilar or axillary lymphadenopathy by size criteria. There is no pleural or pericardial effusion. Two right adrenal nodules are identified measuring up to 1.5 cm. There is mild thickening of the left adrenal gland without discrete nodule. There is mild fatty infiltration of pancreas. Postcholecystectomy. There is mild intra and extrahepatic biliary ductal dilation, likely related to postcholecystectomy effect. Distal common bile duct measures up to 1.5 cm. The spleen is normal in size. Kidneys within normal limits. Urinary bladder is decompressed by a Finch catheter. Uterus is present within normal limits. There is no adnexal mass. There is colonic diverticulosis without evidence of diverticulitis. There is no bowel obstruction, free air or free intraperitoneal fluid. Atheromatous but nonaneurysmal abdominal aorta. IMPRESSION: 1. No evidence of metastatic breast cancer. The sclerotic calvarial lesions were deemed benign osteomas on the final CT head report dated 11/05/2016. 2. Two right adrenal nodules measuring up to 1.5 cm a uncertain chronicity given lack of comparisons. 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 3. Prominence of the biliary tree post cholecystectomy. This is likely simply related to postcholecystectomy effect if LFTs are normal. 4. Colonic diverticulosis without evidence of diverticulitis. 5. Bibasilar atelectasis, right greater than left 6. Postsurgical changes in the bones. 7. Atheromatous but nonaneurysmal abdominal aorta and iliac arteries.
[2016-11-05] MEDS: TIOTROPIUM BROMIDE 18 MCG 5 CAP/INHALER IH SCH (10:26)
[2016-11-05] MEDS: ACETAMINOPHEN 325 MG TABLET PO PRN ×2 (12:58→22:42)
[2016-11-05] MEDS ORDERED: QUETIAPINE FUMARATE 50 MG TABLET PO SCH (17:00)
[2016-11-05] MEDS: HYDROCODONE/ACETAMINOPHEN 5/325MG TABLET PO PRN (23:24)
[2016-11-06] MEDS ORDERED: IV START KIT ONE (01:18)
[2016-11-06] MEDS ORDERED: SODIUM CHLORIDE 0.9% FLUSH 10 ML ONE (01:18)
[2016-11-06 06:20] LABS: ABSOLUTE NEUTROPHIL COUNT 3.3 K/mm3 (1.8-7.7); BASO % 0.2 % (0.2-1.0); EOS # 0.1 (0.0-0.5); EOS % 2.7 % (0.9-2.9); HEMATOCRIT 39.7 % (37.0-47.0); HEMOGLOBIN 12.1 gm/l (12.0-16.0); IMM NEUT% 0.4 % (0-1); LYMPH # 1.3 (1.0-4.8); LYMPH % 25.5 % (15-45); MEAN CELL VOLUME 99.7 fl (81.0-99.0); MEAN CORPUSCULAR HEMOGLOBIN 30.4 pg (27.0-31.0); MEAN CORPUSCULAR HGB CONC 30.5 g/dl (33.0-37.0); MONO # 0.4 (0.0-0.8); NEUT % 64.2 % (43-75); PLATELET COUNT 164 K/mm3 (130-400); RED CELL DISTRIBUTION WIDTH 13.4 % (11.5-14.5)
[2016-11-06 06:25] LABS: ALB/GLOB RATIO 1.1 (>1.0); ALBUMIN 3.1 gm/dL (3.5-5.7); CALCIUM 8.9 mg/dL (8.6-10.3)
[2016-11-06] MEDS: HYDROCODONE/ACETAMINOPHEN 5/325MG TABLET PO PRN (07:24)
[2016-11-06] MEDS: ENOXAPARIN SODIUM 40 MG/0.4 ML SYRINGE SUB-Q SCH (08:01)
--- NOTE | 2016-11-06 08:26 | CONS ---
Ping ROBERT : [id number] DATE OF SERVICE: November 06, 2016 CHIEF COMPLAINT: Right hip pain after fall. HISTORY OF PRESENT ILLNESS: This is a 81-year-old female admitted by the hospitalist service after a fall on to her right hip. She has a previous history of a total hip arthroplasty on this side a number of years ago. She has had pain in this hip for about six months, but notes now that she has inability to bear weight on it and more significant pain that she has had at baseline. She does not have any other active extremity complaints. She is also being worked up for causes for her fall and has had a CT of head due to complaint of headache. She also has significant known dementia. She localizes most of the pain in her hip to the thigh and reports that it is worse with weight bearing or motion. She has not had any previous similar complaints although she is a poor historian. PAST MEDICAL HISTORY: As reported in the hospitalist H&P. PAST SURGICAL HISTORY: As reported in the hospitalist H&P. CURRENT MEDICATIONS: As reported in the hospitalist H&P. ALLERGIES TO MEDICATIONS: As reported in the hospitalist H&P. SOCIAL HISTORY: The patient was a limited ambulator living at [facility]. She uses an assistive device. REVIEW OF SYSTEMS: As per the hospitalist H&P. PHYSICAL EXAM: Patient is a well-developed, well-nourished female in no acute distress. She is awake and alert, but not fully oriented. She is conversant throughout the encounter. HEENT: She is normocephalic and atraumatic other than a small abrasion on her left forehead and the bridge of her nose. NECK: Is soft and supple. EXTREMITY EXAMINATION: Right hip has tenderness to palpation primarily down the thigh. She has pain with log rolling movement, but does not have any evidence of instability. She is unable to perform a straight leg raise, but she does have active quad contraction and she tries to raise her leg. She can flex to approximately 40 degrees with some discomfort. She can abduct approximately 20 degrees in this flexed position. Internal and external rotation increases pain significantly. A log roll also increases pain. There is no palpable crepitance or clunk in the hip as it is moved. She does not have significant pain with a heel tap. There is no shortening. There is no significant bruising or erythema around the hip. She has intact sensation distally and well perfused feet. RADIOGRAPHS: A review of x-rays shows no acute fractures. She has a previous uncemented total hip in place with no clear evidence of loosening on the acetabular side. No asymmetric wear, no significant osteolysis noted. There is a bit of a pedestal at the tip of her stem which appears to be slightly undersized, but no evidence of an acute loosening of the stem and her stem position appears to be appropriate, although I do not have historical references to compare. IMAGING: She also had a CT scan that was done of her chest, abdomen and pelvis and at the very margins of the CT we can see at least the pelvic side which does not demonstrate any significant fractures or evidence of acetabular sided loosening. ASSESSMENT: This is a 81-year-old demented female with limited physical demands with some signs of potential chronic loosening of her stem, but no evidence of an acute change, no fractures. PLAN: My recommendation would be to mobilize the patient, ambulate as tolerated. She can weight bear as tolerated. I think that she was likely going to be able to return to her baseline in relatively short order. She may have a chronic condition with some mild loosening of the stem which is leading to these bony changes, but I think that it would be a fairly large threshold to clear to suggest that she needed a revision for this. We will continue to follow while she is in the hospital and are happy to see her as an outpatient to further evaluate need for additional interventions. Job [id number] Cc: Boyd Iraheta
[2016-11-06] MEDS: ALBUTEROL/IPRATROPIUM 2.5/0.5 MG 3 ML/EACH DOSE NEB SCH ×2 (08:52→12:20)
[2016-11-06] MEDS: BUDESONIDE 0.5 MG/2 ML VIAL.NEB IH SCH (08:57)
[2016-11-06] MEDS: TIOTROPIUM BROMIDE 18 MCG 5 CAP/INHALER IH SCH (09:11)
[2016-11-06] MEDS: CLOTRIMAZOLE 1% 15 APPLIC/15 G CREAM TP SCH (09:12)
[2016-11-06] MEDS: NYSTATIN TOPICAL POWDER 100 MU/G 5 APPLIC/15 G BOT TP SCH (09:12)
[2016-11-06] MEDS: FUROSEMIDE 80 MG TABLET PO SCH (09:13)
[2016-11-06] MEDS: ISOSORBIDE MONONITRATE 60 MG TAB.SR PO SCH (09:13)
[2016-11-06] MEDS: ASPIRIN (ENTERIC COATED) 325 MG TABLET.EC PO SCH (09:13)
[2016-11-06] MEDS: DOCUSATE SODIUM 100 MG CAPSULE PO SCH (09:13)
[2016-11-06] MEDS: POTASSIUM CHLORIDE 20 MEQ TAB.PRT.SR PO SCH (09:13)
[2016-11-06] MEDS: METOPROLOL TARTRATE 25 MG TABLET PO SCH (09:13)
[2016-11-06] MEDS ORDERED: HYDROCODONE/ACETAMINOPHEN 5/325MG TABLET PO PRN (09:56)
--- NOTE | 2016-11-06 11:13 | PDOC5 ---
ADMIT DATE: 11/05/16 DISCHARGE DATE: 11/06/16 ADMISSION DIAGNOSES: Fall with inability to ambulate, hip pain. Dementia Cannot rule out chronic loosening of R hip prosthesis; but no fracture and no clear evidence suggesting such. Calvarial sclerotic lesions; felt to be benign COPD, history of smoking, now quit Remote hx breast cancer. Recent hospitalization for influenza History of angina, stable DNR status PROCEDURES PERFORMED THIS HOSPITALIZATION: CT chest, abd, pelvis. CT head. Xrays of hip and pelvis CONSULTATIONS: Dr Aviles (ortho) HOSPITAL COURSE: This is a 81 year old who is reported to have fallen at home at [facility] the night before admission. She had been on the floor a short period of time, but was unable to bear weight, and c/o R hip pain afterward. She was brought to ED. Labs not remarkable, and Xrays did not show a fracture or loosening of R hip (RISHI) prosthesis. Patient had eval by PT and OT, and felt to be appropriate for DC to SNF, as was tolerating activity with walker, would be able to get to commode. Breathing remained stable, and no significant lab abnormalities noted on CBC, CMP, UA. CPK, troponin, BNP were all normal. - Exam Vital Signs Temperature 97.8 F 11/06/16 07:00 Pulse Rate 91 11/06/16 08:57 Respiratory Rate 18 11/06/16 09:00 Blood Pressure 125/52 11/06/16 07:00 O2 Saturation by Pulse Oximetry 92 11/06/16 07:00 Oxygen Delivery Method Non-Rebreather Oxygen Flow Rate 2 General: Alert, Cooperative, No Acute Distress HEENT: Other (sl resolving abrasion on forehead) Lungs: Other (fair air movement bilat. Pt/daughter reports at baseline.) Cardiovascular: Regular Rate and Rhythm Abdomen: Soft, Normal Bowel Sounds, Non-Distended Extremities: Other (Leg movement much improved at this time.), No Edema Skin: Normal Color Neurological: Normal Speech, Other (Dementia noted, appears stable.) Psych/Mental Status: Normal Affect - Results Laboratory 11/06/16 05:30 11/06/16 05:30 11/06/16 05:30 RBC 3.98 L MCV 99.7 H MCHC 30.5 L AST 12 L Total Protein 5.8 L Albumin 3.1 L Imaging Results: CT Chest/Abd/Pelvis: IMPRESSION: 1. No evidence of metastatic breast cancer. The sclerotic calvarial lesions were deemed benign osteomas on the final CT head report dated 11/05/2016. 2. Two right adrenal nodules measuring up to 1.5 cm a uncertain chronicity given lack of comparisons. 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 3. Prominence of the biliary tree post cholecystectomy. This is likely simply related to postcholecystectomy effect if LFTs are normal. 4. Colonic diverticulosis without evidence of diverticulitis. 5. Bibasilar atelectasis, right greater than left 6. Postsurgical changes in the bones. 7. Atheromatous but nonaneurysmal abdominal aorta and iliac arteries. Hip Xray IMPRESSION: 1. No fracture. 2. Severe osteoarthritis of the left hip. Radiographically normal appearance of the right total hip arthroplasty. Femur Xray IMPRESSION: 1. No fracture. 2. Osteopenia. 3. Satisfactory appearance of the right total hip arthroplasty. CT head IMPRESSION: 1. Minor left frontal scalp soft tissue swelling. No depressed skull fracture. No intracranial hemorrhage. 2. 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 Extensive chronic small vessel ischemic change of the cerebral white matter. 3. Incidental findings include age-related changes in the orbits and sclerotic lesions in the frontal bones, evidence of osteomas. These do not represent metastasis. - Problems:Assessment/Plan (1) Hip pain, acute Qualifiers: Laterality: right Qualifier Code: (M25.551) Pain in right hip Status: AcuteAssessment/Plan: Associated with fall, now with improved pain control. Plan DC to SNF for further care. Monitor, and if worsening pain, anticipate ortho follow up. (2) Dementia Qualifiers: Dementia type: Alzheimer's disease Alzheimer's disease onset: unspecified onset Dementia behavioral disturbance: without behavioral disturbance Qualifier Code: (G30.9) Alzheimer's disease, unspecified Status: ChronicAssessment/Plan: Stable (3) CAD (coronary artery disease) Qualifiers: Coronary Disease-Associated Artery/Lesion type: [place] artery [place] vs. transplanted heart: [place] heart Associated angina: without angina Qualifier Code: (I25.10) Atherosclerotic heart disease of [place] coronary artery without angina pectoris Status: ChronicAssessment/Plan: STable, normal troponin (4) HTN (hypertension) Qualifiers: Hypertension type: essential hypertension Qualifier Code: (I10) Essential (primary) hypertension Status: ChronicAssessment/Plan: Stable. (5) Hyperlipidemia Qualifiers: Hyperlipidemia type: unspecified Qualifier Code: (E78.5) Hyperlipidemia , unspecified Status: ChronicAssessment/Plan: Continue med (6) CHF, chronic Qualifiers: Congestive heart failure type: diastolic Qualifier Code: (I50.32) Chronic diastolic (congestive) heart failure Status: ChronicAssessment/Plan : Stable, BNP not elevated (7) COPD (chronic obstructive pulmonary disease) with acute bronchitis Status: ChronicAssessment/Plan: COntinue O2 supplement. - Disposition: Disposition: Anticipate going to SNF today. - Discharge Plan Prescriptions: Hydrocodone/Acetaminophen [Hydrocodon-Acetaminophen 5-325] 1 - 2 tab PO Q4H PRN #60 PRN Reason: Pain Follow-Up: Carlitos Bledsoe MD [Primary Care Provider] - Condition: Good Disposition: Longterm Facility
[2016-11-06 11:44] VITALS: BP 110/58
== END 2016-11-06 13:50 ==
LOC: ED 02:57 → MS 05:20
PROVIDERS: ADMIT Family Medicine; ATTEND Family Medicine
DX: M25.552 Pain in left hip (principal); T84.031A Mechanical loosening of internal left hip prosthetic joint, initial encounter; Z87.891 Personal history of nicotine dependence; F03.90 Unspecified dementia, unspecified severity, without behavioral disturbance, psychotic disturbance, mood disturbance, and anxiety; L98.9 Disorder of the skin and subcutaneous tissue, unspecified; J44.9 Chronic obstructive pulmonary disease, unspecified; Z85.3 Personal history of malignant neoplasm of breast; Z66 Do not resuscitate; M16.7 Other unilateral secondary osteoarthritis of hip; K57.30 Diverticulosis of large intestine without perforation or abscess without bleeding; J98.11 Atelectasis; W19.XXXA Unspecified fall, initial encounter
CPT/HCPCS: 83880; 85025 ×2; 82550; 80053 ×2; 80307; 84484 ×2; 81001; 36415; 73552; 72170; 74177; 70450; 71260; 94640 ×8; 97110; 97530 ×2; 97162; 97165; 96375; 99285 ×2; 96374; 51702; 93005; 96372 ×2; A9270 ×26; J7626 ×3; J1650 ×2; J2405; J7040; Q9967; J1170 ×2; G0378 ×2